=== PATIENT | female | born 1995 | race Caucasian/White ===

== ENCOUNTER 2019-11-19 09:46 | Emergency (ER) | payer OTHER ==
[~2019-11-19] VITALS: Ht 157.5 cm; Wt 54.4 kg
[2019-11-19 09:50] VITALS: BP 132/77
[2019-11-19] MEDS ORDERED: ENSKYCE1 EACH PO (09:57)
[2019-11-19] MEDS ORDERED: PAXIL20 MG PO (09:57)
[2019-11-19 10:24] LABS: INFLUENZA A ANTIGEN Negative (Negative); INFLUENZA B ANTIGEN Negative (Negative)
== END 2019-11-19 10:50 | disposition home or self-care (01) ==
LOC: M.ERS 09:46
PROVIDERS: Physician Assistant
DX: B34.9 Viral infection, unspecified (principal); F17.210 Nicotine dependence, cigarettes, uncomplicated; Z88.6 Allergy status to analgesic agent